=== PATIENT | female | born 1985 | race American Indian/Alaskan Native ===

== ENCOUNTER 2016-06-10 13:10 | Outpatient (CLI) | payer OTHER, MEDICAID ==
[2016-06-10] MEDS ORDERED: LACTATED RINGERS 500 ML IV ONE ×2 (13:41→14:00)
[2016-06-10 13:55] VITALS: BP 117/69
--- NOTE | 2016-06-10 15:40 | Ultrasound Report ---
OB LIMITED History: Vaginal bleeding. Technique: Transabdominal ultrasound with Doppler interrogation. Gestation: Single Position: Cephalic Placenta: Anterior Placental Grade: 1 Heart Rate: 149 BPM Cervical length: 3.2 cm (Normal > 3 cm) Comment: No evidence for abruption.
== END 2016-06-10 14:45 | disposition home or self-care (01) ==
LOC: TRG 13:10
PROVIDERS: ATTEND Obstetrics & Gynecology
DX: O46.92 Antepartum hemorrhage, unspecified, second trimester (principal); Z3A.27 27 weeks gestation of pregnancy
CPT/HCPCS: 59025; 76815

== ENCOUNTER 2016-08-20 07:23 | Inpatient (IN) | payer OTHER, MEDICAID ==
[2016-08-20] MEDS ORDERED: PEPCID IV ONE (08:16)
[2016-08-20] MEDS ORDERED: BICITRA ONE (08:17)
[2016-08-20] MEDS ORDERED: SUBLIMAZE ONE (08:25)
[2016-08-20] MEDS ORDERED: BICITRA PO NR (08:30)
[2016-08-20] MEDS ORDERED: PEPCID IV NR (08:30)
[2016-08-20] MEDS ORDERED: REGLAN IV NR (08:30)
[2016-08-20] MEDS: LACTATED RINGERS 1,000 ML IV SCH ×2 (08:30→08:31)
--- NOTE | 2016-08-20 08:32 | History and Physical Report ---
History of Present Illness Date of examination: 08/20/16 Date of admission: 08/20/16 08:14 Chief complaint: Painful contractions since last PM History of present illness: A 30-year-old at 36+5 weeks presents in active labor, she is a life cycle OBGYN patient. care has been unremarkable per patient. Patient started jon last night, she called the answering service and I spoke with the patient. Asked the patient to come on into the hospital to be evaluated; she however was no show. In Triage now, she is 5 cm dilated with bulging bag Review of chart shows anterior placenta with previa earlier in which resolved on follow-up scan at 18 weeks Past History Past Medical History: other (Bronchitis) Past Surgical History: section (# 2) PLANNER History: denies: chlamydia, gonorrhea, hepatitis B, hepatitis C, herpes, HIV , syphilis, trichomonas Social history: full code. denies: smoking, alcohol abuse, prescription drug abuse, IV drug use - Obstetrical History Expected Date of Delivery: 09/12/16 Actual Gestation: 36 Week(s) 5 Day(s) : 6 Para: 3 Number of Living Children: 3 Medications and Allergies Allergies Allergy/AdvReac Type Severity Reaction Status Date / Time No Known Allergies Allergy Unverified 04/13/15 07:51 Home Medications Medication Instructions Recorded Confirmed Last Taken Type Ibuprofen [Motrin 600 MG tab] 600 mg PO Q8H PRN #30 tablet 08/20/16 Unknown Rx Multivitamin with Iron 1 each PO DAILY #30 tablet 08/20/16 Unknown Rx [Multivitamins with Iron] Vitamin Tablet 1 tab PO DAILY 08/20/16 08/20/16 Unknown History oxyCODONE /ACETAMINOPHEN [Percocet 1 tab PO Q6HR PRN #30 tablet 08/20/16 Unknown Rx 5/325] Active Meds: Active Medications Citric Acid/Sodium Citrate (Bicitra) 30 ml PO ONCE NR Stop: 08/20/16 15:00 Famotidine (Pepcid) 20 mg IV ONCE NR Stop: 08/20/16 15:00 Lactated Ringer's (Lactated Ringers) 1,000 mls @ 2,250 mls/hr IV PREOP DIMA Stop: 08/21/16 09:27 Oxytocin/Sodium Chloride (Pitocin/Ns 20 Unit/1000ml Drip) 20 units in 1,000 mls @ 0 mls/hr IV TITR DIMA PRN Reason: As Directed Metoclopramide HCl (Reglan) 10 mg IV ONCE NR Stop: 08/20/16 15:00 Review of Systems Constitutional: no fever, no chills, no sweats Cardiovascular: no chest pain, no orthopnea, no syncope, no lightheadedness, no shortness of breath, no dyspnea on exertion Respiratory: no shortness of breath, no dyspnea on exertion Gastrointestinal: abdominal pain (Painful contractions), no nausea, no vomiting Genitourinary: no vaginal bleeding, no vaginal discharge, no leakage of fluid - Vital Signs Vital signs: Vital Signs Pulse Pulse Ox 90 93 08/20/16 07:34 08/20/16 07:34 Temp Pulse Resp BP Pulse Ox 98.0 F 87 18 139/82 99 08/20/16 07:38 08/20/16 08:21 08/20/16 07:38 08/20/16 08:04 08/20/16 08:21 - Physical Exam Cardiovascular: Regular rate, Normal S1, Normal S2 Lungs: Positive: Clear to auscultation, Normal air movement Abdomen: Positive: normal appearance, soft. Negative: distention, tenderness, guarding, rigidity Uterus: Positive: enlarged (EFW ~ 3700). Negative: tender Adnexa: both: normal Extremities: Positive: normal - Obstetrical FHR: category 1 Cervical Dilatation: 5 (Per RN exam) Results Result Diagrams: 08/20/16 08:15 All other labs normal. Assessment and Plan A: 30 y/o at 36+5 wks in active labor -Cat 1 tracing -Desires permanent sterilization P: -Proceed with 3rd repeat -She has been consented - Patient Problems (1) 36 to 37 weeks gestation of Current Visit: Yes Status: Acute (2) Active labor at term Current Visit: Yes Status: Acute (3) History of 2 sections Current Visit: Yes Status: Acute
[2016-08-20] MEDS ORDERED: SUBLIMAZE IV ONE (08:34)
[2016-08-20 08:49] LABS: Basophils % (Auto) 0.3 % (0.0-1.8); Eosinophils % (Auto) 0.9 % (0.0-4.3); Hematocrit 33.4 % (30.3-42.9); Hemoglobin 10.7 gm/dl (10.1-14.3); Mean Corpuscular HGB Conc 32 % (30-34); Mean Corpuscular Volume 75 fl (79-97); Platelet Count 185 K/mm3 (140-440); Red Blood Count 4.44 M/mm3 (3.65-5.03); Red Cell Distribution Width 15.7 % (13.2-15.2); White Blood Count 6.9 K/mm3 (4.5-11.0)
[2016-08-20 08:52] LABS: Mean Corpuscular Hemoglobin 24 pg (28-32)
--- NOTE | 2016-08-20 08:57 | Anesthesia Consultation ---
Anesthesia Consult and Med Hx Date of service: 08/20/16 - Airway Anesthetic Teeth Evaluation: Good ROM Head & Neck: Adequate Mental/Hyoid Distance: Adequate Mallampati Class: Class II Intubation Access Assessment: Probably Good - Pre-Operative Health Status ASA Pre-Surgery Classification: ASA2 Proposed Anesthetic Plan: Epidural, Spinal - Pulmonary Hx Asthma: No - Cardiovascular System Hx Hypertension: No - Central Nervous System Hx Seizures: No Hx Psychiatric Problems: No - Endocrine Hx Renal Disease: No Hx Hypothyroidism: No Hx Hyperthyroidism: No - Hematic Hx Anemia: No Hx Sickle Cell Disease: No - Other Systems Hx Alcohol Use: No
[2016-08-20] MEDS ORDERED: BENADRYL IV PRN (08:58)
[2016-08-20] MEDS ORDERED: DILAUDID IV PRN (08:58)
--- NOTE | 2016-08-20 08:58 | Anesthesia Day of Surgery ---
Anesthesia Day of Surgery - Day of Surgery Patient Examined: Yes Patient H&P Reviewed: Yes Patient is NPO: Yes
[2016-08-20] MEDS ORDERED: TORADOL IV PRN (09:00)
[2016-08-20] MEDS ORDERED: PITOCin/NS 20 UNIT/1000ML DRIP 20 UNITS/1,000 ML BAG IV SCH ×2 (09:00→13:03)
[2016-08-20] MEDS ORDERED: ANCEF/STERILE WATER 2 GM/20 ML 2 GM/20 ML SYRINGE IV NR (09:00)
[2016-08-20] MEDS ORDERED: MORPHINE ONE (09:36)
[2016-08-20] MEDS ORDERED: WATER FOR IRRIG STERILE IR ONE (09:50)
[2016-08-20] MEDS ORDERED: NACL 0.9% IR ONE (09:50)
[2016-08-20] MEDS ORDERED: NARCAN 0.4 MG/1 ML IV PRN ×2 (10:00→11:09)
[2016-08-20] MEDS ORDERED: EMLA TP PRN (10:00)
[2016-08-20] MEDS ORDERED: NACL 0.9% 500 ML 500 ML IV ONE (10:00)
[2016-08-20] MEDS ORDERED: SODIUM CHLORIDE FLUSH SYRINGE 10 ML IV NR (10:00)
[2016-08-20] MEDS ORDERED: ZOFRAN IV PRN ×2 (10:00→11:09)
[2016-08-20] MEDS ORDERED: NUBAIN IV PRN (10:00)
[2016-08-20] MEDS ORDERED: ZOFRAN ONE (10:22)
[2016-08-20] MEDS ORDERED: ANCEF/STERILE WATER 2 GM/20 ML IV ONE (10:33)
[2016-08-20] MEDS ORDERED: XYLOCAINE MPF 2% ONE (10:34)
[2016-08-20] MEDS ORDERED: TYLENOL PO PRN (11:09)
[2016-08-20] MEDS ORDERED: TUCKS PAD TP PRN (11:09)
[2016-08-20] MEDS ORDERED: LANSINOH TP PRN (11:09)
[2016-08-20] MEDS ORDERED: ANUCORT-HC PR PRN (11:09)
[2016-08-20] MEDS ORDERED: SENOKOT PO PRN (11:09)
--- NOTE | 2016-08-20 11:09 | Operative Report ---
Operative Report Operative Report: DATE: 08/20/2016 PREOPERATIVE DIAGNOSIS: 30-year-old at 36+5 weeks, active labor, 2 prior C -sections, desires permanent sterilization POSTOP DIAGNOSIS: Same NAME OF PROCEDURE: 3rd Repeat low transverse section with bilateral tubal ligation Adhesiolysis SURGEON: PEDRO REVELES MD DIVISION SERVICE MANAGER: [] ANESTHESIA: Combined spinal epidural EBL: 900 mL PATHOLOGY SPECIMEN: None URINE OUTPUT: 200 mL FINDINGS: Male in cephalic presentation, time of was 10:16 AM, Apgars were 8 and 9, infant weight was 6 lbs. 13 oz. or 3084 g, normal uterus tubes and ovaries, moderate adhesions DESCRIPTION OF PROCEDURE: She was taken to the operating room where she was prepped and draped in a sterile fashion, she was placed in the dorsal supine position. Pfannenstiel incision was performed through her prior incisional scar which was carried through to underlying rectus fascia which was on the midline. The fascial incision was extended laterally with use of Franklin scissors, the anterior leaf was then grasped with Kochers forceps elevated dissected sharply and bluntly off the underlying rectus in a similar fashion inferior leaf was grasped elevated dissected sharply and bluntly off the underlying rectus. The rectus was in the midline, good visualization of bladder was noted. A bladder blade was placed in the patient's pelvic cavity; bladder flap could not be created. A hysterotomy incision was then performed in the lower segment with clear amniotic fluid noted, hysterotomy incision was extended laterally with the use of fingers manually. in cephalic presentation was delivered in the usual manner; cord was clamped and cut was handed over to waiting nursery staff. The placenta was then delivered manually intact, the uterus was exteriorized cleared of all clots and debris. Hysterotomy incision was then closed in a running locked fashion with 0 Vicryl on a CTX; using the same suture was imbricate the initial layer. Interrupted [id number] stitches were used to obtain hemostasis. Uterus was then returned to the patient's pelvic cavity; peritoneal edges were grasped with hemostats and Corina's elevated copiously irrigation was used to clear the gutters of all clots and debris. Tercel hemostatic agent was then applied to the hysterotomy incision as a means to prevent future bleeding, Interceed was then applied into the pelvic cavity as a means to prevent future adhesions. The peritoneal layer was then closed in a running fashion with 3-0 Vicryl and the rectus was reapproximated with a single [id number]-vp-[id number] stitch. The fascia was closed in a running fashion with 0 Vicryl and tied in the opposite side. The subcutaneous layer was irrigated and then reapproximated with interrupted figure -of-eight stitches. The skin was closed in a subcuticular manner with 4-0 Vicryl. She tolerated the procedure well lap and instrument counts were correct 2 she did receive 2 g of Ancef prior to incision she is transferred to PACU in stable condition thank you.
--- NOTE | 2016-08-20 11:11 | Post Anesthesia Evaluation ---
- Post Anesthesia Evaluation Patient Participated: Yes Airway Patent: Yes Stable Respiratory Function: Yes Nausea/Vomiting: No Temp > 96.8F: Yes Pain Manageable: Yes Adequeate Hydration: Yes Anesthesia Complications: No Block Receding Appropriately: Yes Patient on Ventilator: No
[2016-08-20] MEDS ORDERED: MORPHINE IV PRN (11:14)
[2016-08-20] MEDS ORDERED: SODIUM CHLORIDE FLUSH SYRINGE 10 ML IV SCH (12:00)
[2016-08-20] MEDS ORDERED: D5LR 1,000 ML IV ONE (18:37)
[2016-08-20] MEDS ORDERED: D5LR 1,000 ML IV SCH (19:00)
[2016-08-20] MEDS: MORPHINE IV PRN (22:42)
[2016-08-21 00:52] LABS: Hematocrit 22.7 % (30.3-42.9); Hemoglobin 6.9 gm/dl (10.1-14.3)
[2016-08-21] MEDS: MORPHINE IV PRN (02:40)
[2016-08-21] MEDS: MOTRIN PO PRN ×3 (02:45→22:24)
[2016-08-21] MEDS: PERCOCET 5/325 PO PRN ×3 (06:48→17:44)
--- NOTE | 2016-08-21 08:41 | Progress Note ---
Assessment and Plan POD # 1 s/p 3rd repeat LTCS -Stable P: -Repeat patient's hematocrit at 10:00 am -Discussed with patient possible transfusion if symptoms or lab result abnormal - Patient Problems (1) 36 to 37 weeks gestation of Current Visit: Yes Status: Acute (2) Active labor at term Current Visit: Yes Status: Acute (3) History of 2 sections Current Visit: Yes Status: Acute (4) Status post repeat low transverse section Current Visit: Yes Status: Acute Subjective - Subjective Date of service: 08/21/16 Principal diagnosis: POD # 1 Interval history: Patient seen and examined, stable. Called by RN this morning for hemoglobin and hematocrit ~ 7/23. She denies shortness of breath, chest pain. She however does have some dizziness on ambulation. She has good urine output Vitals are stable Patient reports: appetite normal, voiding normally, dizzy ambulation (mild), pain well controlled, ambulating normally, no nauseated [place]: doing well Objective - Vital Signs Latest vital signs: Vital Signs Temp Pulse Pulse Resp BP BP Pulse Ox 08/21/16 06:10 99.5 F 96 H 20 111/55 08/21/16 01:00 98.5 F 98 H 18 105/58 08/20/16 21:15 98.6 F 89 18 106/62 08/20/16 16:05 98.4 F 85 20 109/57 08/20/16 12:30 98.2 F 76 20 115/73 08/20/16 12:05 106/68 08/20/16 12:00 95 H 17 106/63 98 08/20/16 11:56 94 H 10 L 98/64 99 08/20/16 11:50 78 11 L 98/64 100 08/20/16 11:45 77 15 103/58 99 08/20/16 11:40 88 12 105/63 99 08/20/16 11:35 102 H 8 L 95/57 99 08/20/16 11:30 82 10 L 103/55 100 08/20/16 11:25 83 15 102/62 99 08/20/16 11:20 81 15 99/55 99 08/20/16 11:15 90 15 100/60 97 08/20/16 11:10 90 10 L 80/50 95 08/20/16 11:09 97.7 F 08/20/16 11:07 92 H 13 82/40 87 08/20/16 11:05 93 08/20/16 08:43 136 H 82 L 08/20/16 08:42 71 82 L 08/20/16 08:41 79 45 L 08/20/16 08:40 79 18 45 L Intake and Output 08/20/16 08/21/16 08/21/16 22:59 06:59 14:59 Intake Total 1100 360 Output Total 200 1100 Balance 900 -740 Intake: IV 500 PITOCin/NS 20 UNIT/1000ML 500 DRIP 20 units In 1,000 ml @ 250 mls/hr IV DIRECT DIMA Rx#:[id number] Oral 600 Intake, Free Water 360 Output: Urine 200 1100 Indwelling Catheter 1100 Void 200 Other: Total, Intake Amount 240 Total, Output Amount 200 300 # Voids Void 1 - Exam Abdomen: Present: normal appearance, soft. Absent: distention, tenderness, guarding, rigidity Uterus: Present: fundal height below umbilicus. Absent: tenderness Extremities: Present: normal Incision: Present: dressed - Labs Labs: Abnormal lab results 08/20/16 08/20/16 08/20/16 Range/Units 08:15 08:15 23:49 Hgb 6.9 L D (10.1-14.3) gm/dl Hct 22.7 L D (30.3-42.9) % MCV 75 L (79-97) fl MCH 24 L (28-32) pg RDW 15.7 H (13.2-15.2) % Seg Neutrophils % 72.5 H (40.0-70.0) % Crossmatch See Detail
[2016-08-21 10:46] LABS: Hematocrit 26.5 % (30.3-42.9); Hemoglobin 8.6 gm/dl (10.1-14.3)
[2016-08-21] MEDS: FEOSOL PO SCH (11:18)
[2016-08-21] MEDS: PRENATAL VITAMIN PO SCH (11:19)
--- NOTE | 2016-08-21 11:59 | Progress Note ---
Subjective Date of service: 08/21/16 Principal diagnosis: POD # 1 Interval history: 1st POD after Patient is in the bed, comfortable. Pain is well controlled with pain meds. No pruritu s . Ambulated well. No residual neurological deficit. No anesthesia complications Objective - Constitutional Vitals: Vital Signs - 12hr 08/21/16 08/21/16 08/21/16 01:00 06:10 09:07 Temperature 98.5 F 99.5 F 99.9 F H Pulse Rate [ 98 H 96 H 98 H From Monitor] Respiratory 18 20 18 Rate Blood Pressure 105/58 111/55 110/65 [Left Arm] - Labs CBC & Chem 7: 08/21/16 10:00 Labs: Abnormal lab results 08/20/16 08/21/16 Range/Units 23:49 10:00 Hgb 6.9 L D 8.6 L (10.1-14.3) gm/dl Hct 22.7 L D 26.5 L (30.3-42.9) %
[2016-08-21] MEDS: MYLICON PO PRN (15:10)
[2016-08-21 15:25] LABS: Hematocrit 27.1 % (30.3-42.9); Hemoglobin 8.6 gm/dl (10.1-14.3)
[2016-08-21] MEDS: MILK OF MAGNESIA PO PRN (15:30)
[2016-08-22] MEDS: PERCOCET 5/325 PO PRN ×4 (02:39→20:31)
[2016-08-22] MEDS: MOTRIN PO PRN ×3 (07:53→20:32)
[2016-08-22] MEDS: MILK OF MAGNESIA PO PRN (08:13)
[2016-08-22] MEDS: MYLICON PO PRN ×2 (08:14→20:41)
[2016-08-22] MEDS: FEOSOL PO SCH (10:17)
[2016-08-22] MEDS: PRENATAL VITAMIN PO SCH (10:17)
--- NOTE | 2016-08-22 12:39 | Progress Note ---
Assessment and Plan A: PPD #2 - stable P: Discharge home in am Discharge instructions given Subjective - Subjective Date of service: 08/22/16 Principal diagnosis: Patient reports: appetite normal : doing well Objective - Vital Signs Latest vital signs: Vital Signs Temp Pulse Resp BP 08/22/16 08:00 98.6 F 94 H 18 100/56 08/22/16 00:00 99.3 F 103 H 20 123/86 08/21/16 22:24 18 08/21/16 16:15 98.2 F 90 18 110/73 Intake and Output 08/21/16 08/22/16 08/22/16 22:59 06:59 14:59 Other: # Voids Indwelling Catheter 1 Void 1 - Exam Breasts: Present: deferred Cardiovascular: Present: Regular rate Lungs: Present: Clear to auscultation Abdomen: Present: soft Uterus: Present: fundal height below umbilicus Extremities: Present: normal Deep Tendon Reflex Grade: Normal +2 Incision: Present: normal, intact - Labs Labs: Abnormal lab results 08/21/16 Range/Units 15:10 Hgb 8.6 L (10.1-14.3) gm/dl Hct 27.1 L (30.3-42.9) %
--- NOTE | 2016-08-22 12:40 | Discharge Summary ---
Providers - Providers Date of Admission: 08/20/16 08:14 Date of discharge: 08/22/16 Attending physician: CHARY HYDE MD Primary care physician: CHARY HYDE MD Hospitalization Reason for admission: section Procedure: section, bilateral tubal ligation Incision: intact Other procedures: none complications: none Discharge diagnosis: delivery baby: male Condition at discharge: Good Disposition: DISCHARGED TO HOME OR SELFCARE Plan - Discharge Medications Prescriptions: Ibuprofen [Motrin 600 MG tab] 600 mg PO Q8H PRN #30 tablet PRN Reason: Pain Multivitamin with Iron [Multivitamins with Iron] 1 each PO DAILY #30 tablet oxyCODONE /ACETAMINOPHEN [Percocet 5/325] 1 tab PO Q6HR PRN #30 tablet PRN Reason: Pain - Provider Discharge Summary Activity: routine, no sex for 6 weeks, no heavy lifting 4 weeks, no strenuous exercise Diet: routine Instructions: routine Additional instructions: [] Smoking cessation referral if applicable(refer to patient education folder for contact #) [] Refer to [facility]'s [facility] Booklet Call your doctor immediately for: * Fever > 100.5 * Heavy vaginal bleeding ( >1 pad per hour) * Severe persistent headache * Shortness of breath * Reddened, hot, painful area to leg or breast * Drainage or odor from incision. * Keep incision clean and dry at all times and follow doctor's instructions regarding bathing/showering - Follow up plan Follow up: [facility] [Provider Group] - 6 Weeks
[2016-08-22] MEDS ORDERED: DULCOLAX PR PRN (12:42)
[2016-08-23] MEDS: MOTRIN PO PRN ×2 (04:23→13:08)
[2016-08-23] MEDS: PERCOCET 5/325 PO PRN ×2 (04:23→13:06)
[2016-08-23 12:20] VITALS: BP 119/78
[2016-08-23] MEDS: FEOSOL PO SCH (13:08)
== END 2016-08-23 14:00 | disposition home or self-care (01) | DRG 765 ==
LOC: TRG 07:23 → APU 08:14 → OB 12:25
PROVIDERS: ADMIT Obstetrics & Gynecology; ATTEND Obstetrics & Gynecology
PROC: 0UL70ZZ Occlusion of Bilateral Fallopian Tubes, Open Approach (ICD-10-PCS; principal; 2016-08-20)
PROC: 10D00Z1 Extraction of Products of Conception, Low, Open Approach (ICD-10-PCS; principal; 2016-08-20)
DX: O34.211 Maternal care for low transverse scar from previous cesarean delivery (principal); O60.14X0 Preterm labor third trimester with preterm delivery third trimester, not applicable or unspecified; Z3A.36 36 weeks gestation of pregnancy; Z37.0 Single live birth
CPT/HCPCS: 36415; 85014; 85018; 85025; 86850; 86900; 86901; 86920; 99211; C1765; C9250; G0463; J0690; J2270; J2300; J2405; J2590; J2765; J3010; J7120; J7121

== ENCOUNTER 2020-01-16 17:36 | Emergency (ER) | payer OTHER ==
[2020-01-16] MEDS ORDERED: SODIUM CHLORIDE 0.9% 1000 ML 1,000 ML IV ONE (18:14)
[2020-01-16] MEDS ORDERED: MORPHINE 4 MG/1 ML INJ IV ONE (18:14)
[2020-01-16] MEDS ORDERED: ONDANSETRON 4 MG/2 ML INJ IV ONE (18:14)
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
[2020-01-16] MEDS ORDERED: HYDROcodone/ACETAMINOPHEN 10-325MG TAB PO ONE (18:38)
[2020-01-16 20:45] VITALS: BP 158/94
== END 2020-01-16 20:44 | disposition home or self-care (01) ==
LOC: ED 17:36
DX: T21.01XA Burn of unspecified degree of chest wall, initial encounter (principal); T31.0 Burns involving less than 10% of body surface; Z79.1 Long term (current) use of non-steroidal anti-inflammatories (NSAID); Z79.899 Other long term (current) drug therapy; X11.8XXA Contact with other hot tap-water, initial encounter; Y93.89 Activity, other specified; Y92.89 Other specified places as the place of occurrence of the external cause; Y99.8 Other external cause status
CPT/HCPCS: 96361; 96374; 96375; 99283; J2270; J2405; J7030